=== PATIENT | male | born 1995 | race Caucasian/White ===

== ENCOUNTER 2025-04-19 04:53 | Inpatient (IN) | payer BC ==
[~2025-04-19] VITALS: Ht 180.3 cm; Wt 95.3 kg
[2025-04-19 05:01] VITALS: O2SAT 100
[2025-04-19] MEDS: MORPHINE SULFATE 4 MG/ML INJ (FOR IV/IM USE) IV ONE ×2 (05:34→06:38)
[2025-04-19 06:09] LABS: BASOPHILS % 0.4 % (0.0-2.0); EOSINOPHILS % 0.8 % (0.0-5.0); HEMATOCRIT. 44.0 % (42.0-52.0); HEMOGLOBIN. 14.7 g/dL (14.0-18.0); LYMPHOCYTES % 24.6 % (20.0-50.0); MEAN PLATELET VOLUME 8.3 fl (7.4-10.4); MONOCYTES % 7.2 % (2.0-8.0); NEUTROPHILS % 67.0 % (40.0-76.0); PLATELET 279 x1000/uL (130-400); RED BLOOD CELL COUNT 5.45 mill/uL (4.7-6.1); RED CELL DISTRIBUTION WIDTH 13.5 % (11.6-14.6)
[2025-04-19 06:28] LABS: CREATININE 1.0 mg/dL (0.6-1.3)
[2025-04-19 06:29] LABS: UREA NITROGEN BLOOD 14 mg/dL (9-23)
[2025-04-19 06:30] LABS: ASPARTATE AMINOTRANSFERASE 24 IU/L (<34)
[2025-04-19 06:31] LABS: BILIRUBIN DIRECT 0.2 mg/dL (<=3.0); BILIRUBIN TOTAL 0.6 mg/dL (0.1-1.0); PROTEIN TOTAL 7.1 g/dL (6.0-8.3)
[2025-04-19 08:00] VITALS: BP 149/87; PULSE 59; RESP 16; TEMP 35.7; O2SAT 97
[2025-04-19] MEDS ORDERED: ONDANSETRON HCL 4MG/2ML INJ IV PRN (08:00)
[2025-04-19] MEDS ORDERED: IPRATROPIUM/ALBUTEROL 0.5-3(2.5)MG/3ML NEB HHN PRN (08:00)
[2025-04-19 08:30] VITALS: BP 149/87; PULSE 59; RESP 16; TEMP 35.6952; TEMP 35.7; O2SAT 97
[2025-04-19] MEDS ORDERED: CEFTRIAXONE 1GM/50ML 50 ML IV SCH (09:00)
[2025-04-19] MEDS: KETOROLAC 15MG/ML VIAL IV PRN (09:27)
[2025-04-19] MEDS ORDERED: CLONIDINE 0.1MG TABLET PO PRN (10:00)
[2025-04-19] MEDS: METRONIDAZOLE 500 MG PREMIX 100 ML IV SCH (11:14)
[2025-04-19] MEDS: FAMOTIDINE 20MG/2ML VIAL IV SCH (11:14)
[2025-04-19] MEDS: LACTATED RINGERS 1,000 ML IV SCH (11:15)
[2025-04-19 12:00] VITALS: BP 123/93; PULSE 71; RESP 18; TEMP 36.2; O2SAT 98
[2025-04-19] MEDS: CEFTRIAXONE 1GM/50ML 50 ML IV SCH (14:43)
[2025-04-19 16:00] VITALS: BP 130/87; PULSE 72; RESP 18; TEMP 36.3; O2SAT 98
[2025-04-19] MEDS ORDERED: AMPH25CA PO (18:13)
[2025-04-19 19:41] LABS: CLARITY URINE CLEAR (CLEAR); COLOR URINE YELLOW (YELLOW); GLUCOSE URINE 1+ (NEGATIVE); KETONES URINE 1+ (NEGATIVE); LEUKOCYTE ESTERASE URINE NEGATIVE (NEGATIVE); NITRITE URINE NEGATIVE (NEGATIVE); OCCULT BLOOD URINE NEGATIVE (NEGATIVE); PH URINE 6.5 (4.5-8.0); PROTEIN URINE NEGATIVE (NEGATIVE); SPECIFIC GRAVITY URINE 1.025 (1.005-1.030); UROBILINOGEN URINE 0.2 E.U./dL (0.2-1.0)
[2025-04-19 19:54] LABS: BACTERIA URINE TRACE; RBC URINE 0-2 /hpf (0-2); SQUAMOUS EPITHELIAL CELL URINE RARE /lpf (RARE/1+); WBC URINE 0-2 /hpf (0-2)
[2025-04-19 19:58] LABS: *AMPHETAMINES SCREEN URINE NEGATIVE (NEGATIVE); *BARBITURATES SCREEN URINE NEGATIVE (NEGATIVE); *BENZODIAZEPINES SCREEN URINE NEGATIVE (NEGATIVE); *COCAINE SCREEN URINE NEGATIVE (NEGATIVE); CANNABINOID URINE SCREEN NEGATIVE (NEGATIVE); ECSTASY MDMA SCREEN URINE NEGATIVE (NEGATIVE); METHADONE URINE SCREEN NEGATIVE (NEGATIVE); OPIATES URINE SCREEN PRESUMPTIVE POSITIVE (NEGATIVE); PHENCYCLIDINE URINE SCREEN NEGATIVE (NEGATIVE)
[2025-04-19 20:00] VITALS: BP 125/85; PULSE 71; RESP 20; TEMP 36.7; O2SAT 99
[2025-04-20] VITALS: BP 127/80; PULSE 77; RESP 18; TEMP 36.6; O2SAT 99
[2025-04-20] MEDS: METRONIDAZOLE 500 MG PREMIX 100 ML IV SCH (00:51)
[2025-04-20 04:00] VITALS: BP 132/90; PULSE 84; RESP 18; TEMP 36.7; O2SAT 99
[2025-04-20 07:07] LABS: BASOPHILS % 0.4 % (0.0-2.0); EOSINOPHILS % 0.8 % (0.0-5.0); HEMATOCRIT. 42.2 % (42.0-52.0); HEMOGLOBIN. 14.3 g/dL (14.0-18.0); LYMPHOCYTES % 25.3 % (20.0-50.0); MEAN PLATELET VOLUME 8.0 fl (7.4-10.4); MONOCYTES % 8.8 % (2.0-8.0); NEUTROPHILS % 64.7 % (40.0-76.0); PLATELET 242 x1000/uL (130-400); RED BLOOD CELL COUNT 5.27 mill/uL (4.7-6.1); RED CELL DISTRIBUTION WIDTH 13.7 % (11.6-14.6)
[2025-04-20 07:24] LABS: TRIGLYCERIDE 87 mg/dL (0-150)
[2025-04-20 07:26] LABS: CREATININE 0.8 mg/dL (0.6-1.3); UREA NITROGEN BLOOD 8 mg/dL (9-23)
[2025-04-20 07:27] LABS: ASPARTATE AMINOTRANSFERASE 21 IU/L (<34); LDL CHOLESTEROL 103 mg/dL (5-100); T4 FREE 1.54 ng/dL (0.89-1.76)
[2025-04-20 07:28] LABS: BILIRUBIN DIRECT 0.2 mg/dL (<=3.0); BILIRUBIN TOTAL 0.8 mg/dL (0.1-1.0); PROTEIN TOTAL 6.5 g/dL (6.0-8.3)
[2025-04-20 08:00] VITALS: BP 122/71; PULSE 81; RESP 17; TEMP 36.6; O2SAT 99
[2025-04-20] MEDS ORDERED: METR-167 MT (09:05)
[2025-04-20] MEDS ORDERED: IBUP-1455 MT (09:05)
[2025-04-20] MEDS ORDERED: CIPR500S5 PO (09:05)
[2025-04-20] MEDS ORDERED: OMEP20CA14 MT (09:05)
[2025-04-20 12:00] VITALS: BP 119/76; PULSE 91; RESP 18; TEMP 36.3; O2SAT 99
[2025-04-20 14:41] VITALS: BP 119/76; PULSE 91; RESP 18; TEMP 97.4
== END 2025-04-20 15:48 | disposition home or self-care (01) | DRG 446 ==
LOC: ER 04:53 → 6WST 07:11 → ENRESERV 08:04
PROVIDERS: ADMIT Internal Medicine; ATTEND Internal Medicine
DX: K80.42 Calculus of bile duct with acute cholecystitis without obstruction (principal); F90.9 Attention-deficit hyperactivity disorder, unspecified type
CPT/HCPCS: 36415; 76705; 80048; 80061; 80076; 80305; 81003; 82150; 83605; 84145; 84439; 84443; 85025; 93005; 93970; 96374; 96376; 99285; J0696; J1308; J1885; J2270; J3490